=== PATIENT | female | born 1955 | race Caucasian/White ===

== ENCOUNTER 2017-11-20 18:00 | Outpatient (CLI) | payer BC | END 2017-11-20 18:01 | disposition home or self-care (01) | LOC: SLEEPLAB 18:00 | PROVIDERS: ATTEND Family Medicine | DX: G47.33 Obstructive sleep apnea (adult) (pediatric) (principal) | CPT/HCPCS: 95806 ==

== ENCOUNTER 2017-12-03 13:25 | Emergency (ER) | payer BC ==
[2017-12-03] MEDS ORDERED: predniSONE 20 MG TAB ONE (13:47)
[2017-12-03] MEDS ORDERED: valACYclovir 500 MG TAB ONE (13:47)
== END 2017-12-03 13:50 | disposition home or self-care (01) ==
LOC: SCSER 13:25
DX: G51.0 Bell's palsy (principal); F41.9 Anxiety disorder, unspecified; F32.9 Major depressive disorder, single episode, unspecified
CPT/HCPCS: 99283; J7506

== ENCOUNTER 2017-12-13 20:30 | Outpatient (CLI) | payer BC | END 2017-12-13 20:31 | disposition home or self-care (01) | LOC: SLEEPLAB 20:30 | PROVIDERS: ATTEND Family Medicine | DX: G47.33 Obstructive sleep apnea (adult) (pediatric) (principal); G47.00 Insomnia, unspecified; R53.83 Other fatigue; R51 Headache; R42 Dizziness and giddiness; R41.0 Disorientation, unspecified | CPT/HCPCS: 95811 ==

== ENCOUNTER 2018-03-20 15:54 | Outpatient (CLI) | payer BC | END 2018-03-20 15:55 | disposition home or self-care (01) | LOC: BICMAMMO 15:54 | PROVIDERS: ATTEND Obstetrics & Gynecology | DX: Z12.31 Encounter for screening mammogram for malignant neoplasm of breast (principal); Z80.3 Family history of malignant neoplasm of breast | CPT/HCPCS: 77063; 77067 ==

== ENCOUNTER 2021-09-12 10:27 | Outpatient (CLI) | payer BC | END 2021-09-12 10:28 | disposition home or self-care (01) | LOC: SCSMRI 10:27 | PROVIDERS: ATTEND Neurological Surgery | DX: D42.1 Neoplasm of uncertain behavior of spinal meninges (principal); M47.812 Spondylosis without myelopathy or radiculopathy, cervical region; M48.02 Spinal stenosis, cervical region; M47.814 Spondylosis without myelopathy or radiculopathy, thoracic region | CPT/HCPCS: 72156; 72157; 82565 ==

== ENCOUNTER 2021-09-13 10:15 | Inpatient (IN) | payer BC ==
[2021-09-25 14:56] VITALS: BMI 35.2
[2021-09-28] MEDS ORDERED: Neomycin-Polymyxin 1 ML AMP ONE (06:12)
[2021-09-28] MEDS ORDERED: EPINEPHrine 1 MG/ML AMP ONE (06:12)
[2021-09-28] MEDS ORDERED: Bupivacaine PF 0.5% 30 ML VIAL ONE (06:12)
[2021-09-28] MEDS ORDERED: Thrombin 5000 UNITS/5 ML VIAL ONE (06:12)
[2021-09-28] MEDS ORDERED: Midazolam HCl 2 mg/2 ml Vial ONE (06:34)
[2021-09-28] MEDS ORDERED: Fentanyl 250 MCG/5 ML VIAL ONE (06:34)
[2021-09-28] MEDS ORDERED: Ondansetron PF 4 MG/2 ML Vial IVP PRN (06:41)
[2021-09-28] MEDS ORDERED: Mag-Al 1200 mg/1200 mg/30 ML UDCUP PO PRN (06:41)
[2021-09-28] MEDS ORDERED: Promethazine 25 MG TAB PO PRN (06:41)
[2021-09-28] MEDS ORDERED: Acetaminophen 325 MG TAB PO PRN (06:41)
[2021-09-28] MEDS ORDERED: Bisacodyl 10 MG SUPP PR PRN (06:41)
[2021-09-28] MEDS ORDERED: diphenhydrAMINE 50 MG/ML VIAL IVP PRN (06:41)
[2021-09-28] MEDS ORDERED: Morphine 2 MG/ML VIAL SLOW IVP PRN (06:41)
[2021-09-28] MEDS ORDERED: ceFAZolin (BATCH) 2 GM/100 ML BAG ONE (06:42)
[2021-09-28] MEDS ORDERED: ALPRAZolam 0.25 MG TAB PO PRN (06:46)
[2021-09-28] MEDS ORDERED: Ondansetron PF 4 MG/2 ML Vial ONE (07:11)
[2021-09-28] MEDS ORDERED: Dexamethasone 20 MG/5 ML VIAL ONE (07:11)
[2021-09-28] MEDS ORDERED: Lidocaine 1% PF 5 ML VIAL ONE (07:11)
[2021-09-28] MEDS ORDERED: Glycopyrrolate 0.2 MG/ML 5 ML SYRINGE ONE (07:11)
[2021-09-28] MEDS ORDERED: PROPOFOL 200 MG/20 ML VIAL ONE (07:11)
[2021-09-28] MEDS ORDERED: Vecuronium 10 MG VIAL ONE (07:11)
[2021-09-28] MEDS ORDERED: Multivits W-Minerals Liquid 15 ML LIQ PO SCH (09:00)
[2021-09-28] MEDS ORDERED: Non-Formulary Item 1 EACH (Cholecalciferol (Vitamin D3) [Vitamin D3] 2,000 UNIT Capsule) PO SCH (09:00)
[2021-09-28] MEDS ORDERED: Non-Formulary Item 1 EACH (Zinc [Zinc] 50 MG Tablet) PO SCH (09:00)
[2021-09-28] MEDS ORDERED: Ondansetron HCl/PF 4 MG/2 ML Vial IVP PRN (11:15)
[2021-09-28] MEDS ORDERED: Promethazine HCl 25 MG/ML VIAL IVPB PRN (11:15)
[2021-09-28] MEDS ORDERED: PACU-Morphine 4MG/ML VIAL SLOW IVP PRN (11:15)
[2021-09-28] MEDS ORDERED: Promethazine HCl 25 MG/ML VIAL IM PRN (11:15)
[2021-09-28] MEDS ORDERED: Fentanyl 100 MCG/2 ML VIAL ONE ×2 (11:25→12:22)
[2021-09-28] MEDS: Cholecalciferol 1,000 UNITS (25 MCG) TAB PO SCH (14:43)
[2021-09-28] MEDS: Multivitamin W/ Minerals 1 TAB PO SCH (14:44)
[2021-09-28] MEDS: Loratadine 10 MG TAB PO SCH (14:44)
[2021-09-28] MEDS: Zinc Sulfate 220 MG CAP PO SCH (14:44)
[2021-09-28] MEDS: ceFAZolin (BATCH) 2 GM in Premix Bag 1 BAG IVPB SCH ×2 (15:47→22:36)
[2021-09-28] MEDS ORDERED: Promethazine HCl 25 MG in Sodium Chloride 0.9% 50 ML IVPB PRN (16:16)
[2021-09-28] MEDS: HYDROcodone/Acetaminophen 7.5/325 mg Tablet PO PRN (21:27)
[2021-09-29] MEDS: HYDROcodone/Acetaminophen 10/325 mg Tablet PO PRN ×3 (01:46→20:01)
[2021-09-29] MEDS: Cholecalciferol 1,000 UNITS (25 MCG) TAB PO SCH (07:48)
[2021-09-29] MEDS: Zinc Sulfate 220 MG CAP PO SCH (07:49)
[2021-09-29] MEDS: Loratadine 10 MG TAB PO SCH (07:49)
[2021-09-29] MEDS: Multivitamin W/ Minerals 1 TAB PO SCH (07:50)
[2021-09-29] MEDS: traMADol HCl 50 MG TAB PO PRN ×3 (10:12→23:42)
[2021-09-29] MEDS: HYDROcodone/Acetaminophen 7.5/325 mg Tablet PO PRN (12:47)
[2021-09-29] MEDS: Polyethylene Glycol 3350 17 GM Packet PO PRN (17:39)
[2021-09-30] MEDS: HYDROcodone/Acetaminophen 10/325 mg Tablet PO PRN ×2 (02:40→08:12)
[2021-09-30 08:01] VITALS: BP 141/87; TEMP 99
[2021-09-30] MEDS: Loratadine 10 MG TAB PO SCH (08:13)
[2021-09-30] MEDS: Multivitamin W/ Minerals 1 TAB PO SCH (08:13)
[2021-09-30] MEDS: Cholecalciferol 1,000 UNITS (25 MCG) TAB PO SCH (08:14)
[2021-09-30] MEDS: Zinc Sulfate 220 MG CAP PO SCH (08:14)
[2021-09-30] MEDS: Polyethylene Glycol 3350 17 GM Packet PO PRN (08:16)
[2021-09-30] MEDS: traMADol HCl 50 MG TAB PO PRN (10:35)
== END 2021-09-30 12:50 | disposition home or self-care (01) | DRG 982 ==
LOC: SURG A 09-28 05:50 → MSONC 09-28 12:37
PROVIDERS: ADMIT Neurological Surgery; ATTEND Neurological Surgery
PROC: 00BT0ZZ Excision of Spinal Meninges, Open Approach (ICD-10-PCS; principal; 2021-09-28)
PROC: 01NB0ZZ Release Lumbar Nerve, Open Approach (ICD-10-PCS; 2021-09-28)
PROC: 00UT0JZ Supplement Spinal Meninges with Synthetic Substitute, Open Approach (ICD-10-PCS; 2021-09-28)
DX: D49.7 Neoplasm of unspecified behavior of endocrine glands and other parts of nervous system (principal); G99.2 Myelopathy in diseases classified elsewhere; Z20.822 Contact with and (suspected) exposure to COVID-19; F32.A Depression, unspecified; F41.9 Anxiety disorder, unspecified; I10 Essential (primary) hypertension; M48.02 Spinal stenosis, cervical region; Z90.710 Acquired absence of both cervix and uterus; Z98.890 Other specified postprocedural states; Z83.3 Family history of diabetes mellitus; Z82.49 Family history of ischemic heart disease and other diseases of the circulatory system; Z80.52 Family history of malignant neoplasm of bladder; Z79.899 Other long term (current) drug therapy; Z79.1 Long term (current) use of non-steroidal anti-inflammatories (NSAID); Z79.82 Long term (current) use of aspirin; Z88.5 Allergy status to narcotic agent
CPT/HCPCS: 76000; 88307; 88331; 88341; 88342; C1713; J0171; J0690; J1100; J2250; J2270; J2405; J2704; J3010; J3370; S0020

== ENCOUNTER 2021-11-22 08:35 | Outpatient (CLI) | payer BC | END 2021-11-22 08:36 | disposition home or self-care (01) | LOC: TBSIIMAG 08:35 | PROVIDERS: ATTEND Neurological Surgery | DX: D43.2 Neoplasm of uncertain behavior of brain, unspecified (principal) | CPT/HCPCS: 70553 ==

== ENCOUNTER 2021-12-06 10:57 | Outpatient (CLI) | payer BC | END 2021-12-06 10:58 | disposition home or self-care (01) | LOC: BICMAMMO 10:57 | PROVIDERS: ATTEND Internal Medicine | DX: Z12.31 Encounter for screening mammogram for malignant neoplasm of breast (principal); Z13.820 Encounter for screening for osteoporosis; M85.89 Other specified disorders of bone density and structure, multiple sites; Z91.89 Other specified personal risk factors, not elsewhere classified; Z80.3 Family history of malignant neoplasm of breast | CPT/HCPCS: 77063; 77067; 77080 ==

== ENCOUNTER 2021-12-31 12:42 | Outpatient (CLI) | payer BC ==
[2021-12-31] MEDS ORDERED: Magnevist 469MG/ML 20 ML VIAL ONE (14:11)
== END 2021-12-31 12:43 | disposition home or self-care (01) ==
LOC: TBSIIMAG 12:42
PROVIDERS: ATTEND Neurological Surgery
DX: G95.9 Disease of spinal cord, unspecified (principal); D43.4 Neoplasm of uncertain behavior of spinal cord; Z98.890 Other specified postprocedural states
CPT/HCPCS: 72158; A9579

== ENCOUNTER 2023-07-08 07:47 | Outpatient (CLI) | payer BC | END 2023-07-08 07:48 | disposition home or self-care (01) | LOC: SCSMRI 07:47 | PROVIDERS: ATTEND Neurological Surgery | DX: G95.9 Disease of spinal cord, unspecified (principal); M51.36 Other intervertebral disc degeneration, lumbar region; Z98.890 Other specified postprocedural states | CPT/HCPCS: 72158; 82565 ==